=== PATIENT | male | born 1960 | race African-American/Black ===

== ENCOUNTER 2017-03-25 18:17 | Emergency (ER) | payer MEDICARE, OTHER ==
[~2017-03-25] VITALS: Ht 175.3 cm; Wt 109.8 kg
[2017-03-25] MEDS ORDERED: CYCLOBENZAPRINE10 MG ORAL (18:52)
[2017-03-25] MEDS ORDERED: IBUPROFEN600 MG ORAL (18:52)
[2017-03-25 19:17] VITALS: BP 148/98
[2017-03-25 19:30] VITALS: BP 148/98
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
== END 2017-03-25 19:30 | disposition home or self-care (01) ==
LOC: EMR 18:49
DX: S16.1XXA Strain of muscle, fascia and tendon at neck level, initial encounter (principal); V43.62XA Car passenger injured in collision with other type car in traffic accident, initial encounter; Y92.410 Unspecified street and highway as the place of occurrence of the external cause
CPT/HCPCS: 99283